=== PATIENT | female | born 1975 | race Caucasian/White ===

== ENCOUNTER 2020-05-03 16:16 | Emergency (ER) | payer MEDICARE, MEDICAID, SELFPAY ==
[2020-05-03] VITALS (7 sets, daily range): BP systolic 128–186; BP diastolic 72–113; PULSE 59–72; RESP 17–22; TEMP 36.2; O2SAT 95–100; BMI 54.7
[2020-05-03] MEDS: SODIUM CHLORIDE 0.9% 1,000 ML 1000 ML IV (18:11)
[2020-05-03] MEDS: diphenhydrAMINE 50 MG/ML VIAL 25 MG IV (18:11)
[2020-05-03] MEDS: METOCLOPRAMIDE 10 MG/2 ML INJ IV (18:12)
[2020-05-03] MEDS: KETOROLAC 60 MG/2 ML VIAL 15 MG IV (18:12)
--- NOTE | 2020-05-03 18:31 | ED_ITS ---
H[facility] - [facility]ache <[facility] - Last Filed: 05/03/20 19:52> General Chief Complaint: Headache Stated Complaint: migraine Time Seen by Provider: 05/03/20 17:37 Mode of arrival: Family Vehicle Limitations: no limitations History of Present Illness HPI Narrative: This is a 44 year female, former smoker, who has a long past medical history of migraine headache, depression, fibromyalgia, osteoarthritis, spinal stenosis presents to ED with chief complain of 3 day duration of migraine headache in the front and posterior head describing as tightness with photo and noise sensitivity with nausea. Patient has chills but no fever. She denies recent illness, URI symptoms or cough. Patient denies unusual rashes or nuchal rigidity. Patient had taken Toradol and Nurtec as home therapy without much improvement. Patient reports she usually gets aura did not have it with this migraine and reports also has been having twitching on his left eye for past week. Related Data Allergies Allergy/AdvReac Type Severity Reaction Status Date / Time divalproex sodium Allergy Unknown Verified 05/03/20 16:47 [From DEPAKOTE] morphine [MORPHINE] Allergy Unknown Verified 05/03/20 16:47 quetiapine [From SEROQUEL] Allergy Unknown Verified 05/03/20 16:47 sumatriptan [From IMITREX] Allergy Unknown Verified 05/03/20 16:47 topiramate [From TOPAMAX] Allergy Unknown Verified 05/03/20 16:47 Review of Systems <[facility] - Last Filed: 05/03/20 19:52> Review of Systems Narrative: General: Denies fever, chills, fatigue, malaise, sweats. HEENT: Denies sinus pain, ear pain, sore throat, difficulty swallowing, d izziness. Respiratory: Denies dyspnea, cough, wheezing, hemoptysis, sputum. Cardiovascular: Denies chest pain, palpitations, orthopnea, edema. Gastrointestinal: Denies (+)) nausea, vomiting, abdominal pain, diarrhea, constipation, melena. : Denies dysuria, frequency, incontinence, hematuria, urinary retention. Musculoskeletal: Denies weakness, joint pain or bony pain. Skin: Denies rash, skin lesions, or other. Neurologic: See HPI Psychiatric: No concerning psychosocial issues. 12-point review of systems is negative except for those stated above. Patient History <FERNANDA Scott - Last Filed: 05/03/20 19:52> Medical History (Updated 05/03/20 @ 19:34 by FERNANDA Scott) Depression Fibromyalgia Migraine headache Osteoarthritis Spinal stenosis Surgical History (Updated 05/03/20 @ 18:42 by FERNANDA Scott) H/O oophorectomy History of cholecystectomy Social History (Updated 05/03/20 @ 18:43 by FERNANDA Scott) Smoking Status: Current every day smoker substance use type: marijuana Smoking Status: Current every day smoker tobacco type: cigarettes alcohol intake frequency: 0-2 drinks per day Substance Use Type: marijuana Exam <FERNANDA Scott - Last Filed: 05/03/20 19:52> Narrative Exam Narrative: GEN: Alert, oriented x 3, well appearing and nourished, and in no acute distress. Head: Normal cephalic, atraumatic. No scalp or temporal tenderness, palpable mass or rash. EYES: Pupils are equal, round, and reactive to light and accommodation. Extraocular muscles are intact bilaterally. There is no subconjunctival hemorrhage, exudate and sclera non-icteric. ENT: Hearing grossly intact. Nose without bleeding, purulent discharge or deviation. Mucous membrane sticky, no mucosal lesion. Throat without erythema, tonsillar hypertrophy or exudate. Uvula in midline, airway patent. Neck: Trachea in midline. No JVD, non-tender without lymphadenopathy. No masses or thyroid megaly. Supple, non-tender and no meningeal signs. CARDIAC: Normal regular rate and rhythm without murmurs, gallops, or rubs. No chest wall tenderness. No peripheral edema, cyanosis or pallor. Capillary refill is less than 2 seconds. RESPIRATORY: Lungs are clear to auscultate bilaterally. No cough, wheezes, rales, or rhonchi. No stridor, respiratory distress, increase work of breath ing, or accessary muscle used. ABD: Abdomen soft, nontender and non-distended. No guarding or rebound tenderness to palpate. Bowel sounds are normal in all 4 quadrants. There is no palpable masses or organomegaly. EXT: Full painless ROM of all extremities with no loss of sensation, strength, effusion or edema. SKIN: Warm, dry, normal color for patient. No erythema, lesions or rash over visible areas. BACK: Nontender without deformity or crepitance. No flank tenderness. NEUROLOGICAL: Alert and oriented to place, time and person. Sensation and motor function intact bilaterally. No facial droops, dysphasia. PSYCHIATRIC: Good judgement and reason, without hallucinations, abnormal affect or abnormal behaviors during the examination. Patient is not suicidal. Initial Vital Signs Initial Vital Signs: Vital Signs Temperature 97.1 F L 05/03/20 16:43 Pulse Rate 68 05/03/20 16:43 Respiratory Rate 22 05/03/20 16:43 Blood Pressure 186/113 H 05/03/20 16:43 Pulse Oximetry 100 05/03/20 16:43 <Valerie De Paz DO - Last Filed: 05/04/20 07:14> Initial Vital Signs Initial Vital Signs: Vital Signs Temperature 97.1 F L 05/03/20 16:43 Pulse Rate 68 05/03/20 16:43 Respiratory Rate 22 05/03/20 16:43 Blood Pressure 186/113 H 05/03/20 16:43 Pulse Oximetry 100 05/03/20 16:43 Scores <FERNANDA Scott - Last Filed: 05/03/20 19:52> GCS Samuel coma scale eye opening: Spontaneous Samuel coma scale verbal response: Orientated Samuel coma scale motor response: Obey commands [place] coma scale total score: 15 Course <[place] FERNANDA Key - Last Filed: 05/03/20 19:52> Orders Ordered: Discontinued Medications Diphenhydramine HCl (Diphenhydramine 50 Mg/Ml Vial) 25 mg IV NOW ONE Stop: 05/03/20 18:08 Last Admin: 05/03/20 18:11 Dose: 25 mg Documented by: CARMENZA Sodium Chloride (Normal Saline 0.9%) 1,000 mls @ 1,000 mls/hr IV BOLUS ONE Stop: 05/03/20 19:06 Last Infusion: 05/03/20 19:41 Dose: 0 mls/hr Documented by: Admin: 05/03/20 18:11 Dose: 1,000 mls/hr Documented by: CARMENZA Ketorolac Tromethamine (Ketorolac 60 Mg/2 Ml Vial) 15 mg IV NOW ONE Stop: 05/03/20 18:08 Last Admin: 05/03/20 18:12 Dose: 15 mg Documented by: CARMENZA Metoclopramide HCl (Metoclopramide 10 Mg/2 Ml Inj) 10 mg IV NOW ONE Stop: 05/03/20 18:08 Last Admin: 05/03/20 18:12 Dose: 10 mg Documented by: CARMENZA Vital Signs Vital signs: Vital Signs - 8 hr 05/03/20 16:43 05/03/20 17:42 05/03/20 18:19 Temperature 97.1 F L Pulse Rate 68 71 72 Respiratory Rate 22 Blood Pressure 186/113 H 151/72 H Pulse Oximetry 100 97 98 05/03/20 18:20 05/03/20 18:30 05/03/20 19:00 Temperature Pulse Rate 68 66 59 L Respiratory Rate Blood Pressure 182/97 H 153/96 H 167/96 H Pulse Oximetry 97 96 95 05/03/20 19:30 Temperature Pulse Rate 66 Respiratory Rate 17 Blood Pressure 128/72 Pulse Oximetry 96 <Valerie D ePaz, - Last Filed: 05/04/20 07:14> Orders Ordered: Discontinued Medications Diphenhydramine HCl (Diphenhydramine 50 Mg/Ml Vial) 25 mg IV NOW ONE Stop: 05/03/20 18:08 Last Admin: 05/03/20 18:11 Dose: 25 mg Documented by: CARMENZA Sodium Chloride (Normal Saline 0.9%) 1,000 mls @ 1,000 mls/hr IV BOLUS ONE Stop: 05/03/20 19:06 Last Infusion: 05/03/20 19:41 Dose: 0 mls/hr Documented by: Admin: 05/03/20 18:11 Dose: 1,000 mls/hr Documented by: CARMENZA Ketorolac Tromethamine (Ketorolac 60 Mg/2 Ml Vial) 15 mg IV NOW ONE Stop: 05/03/20 18:08 Last Admin: 05/03/20 18:12 Dose: 15 mg Documented by: CARMENZA Metoclopramide HCl (Metoclopramide 10 Mg/2 Ml Inj) 10 mg IV NOW ONE Stop: 05/03/20 18:08 Last Admin: 05/03/20 18:12 Dose: 10 mg Documented by: CARMENZA Vital Signs Vital signs: Vital Signs - 8 hr 05/03/20 16:43 05/03/20 17:42 05/03/20 18:19 Temperature 97.1 F L Pulse Rate 68 71 72 Respiratory Rate 22 Blood Pressure 186/113 H 151/72 H Pulse Oximetry 100 97 98 05/03/20 18:20 05/03/20 18:30 05/03/20 19:00 Temperature Pulse Rate 68 66 59 L Respiratory Rate Blood Pressure 182/97 H 153/96 H 167/96 H Pulse Oximetry 97 96 95 05/03/20 19:30 Temperature Pulse Rate 66 Respiratory Rate 17 Blood Pressure 128/72 Pulse Oximetry 96 MDM - Headache <FERNANDA Scott - Last Filed: 05/03/20 19:52> Differential Diagnosis Differential diagnosis: Likely migraine and tension headache Medical Records Attestation: I reviewed the patient's medical records. MDM Narrative Medical decision making narrative: This is a 44 year female who presents to ED with 3 day duration of tight headache in frontal and posterior head with mild nausea, photophobia and also sensitivity to noises. Patient has known long history of migraine headache and her routine migraine medication Nurtec and Toradol have been not effective. Physical exam is unremarkable. No unusual rashes, nuchal rigidity, altered mental status. Vital signs within normal limits and afebrile. Patient requested initially steroid medication with IV fluid but informed will start with IV fluid, Benadryl and Reglan for her symptoms and if these patient and will consider steroid which patient did not require at this time. Patient reports improved after this medication. Patient advised to follow-up with primary care physician next week and we discussed return precautions which she verbalized understanding and agreement with treatment plan. Discharge Plan Departure Patient Disposition: Home Clinical Impression: Headache Qualifiers: Headache type: unspecified Headache chronicity pattern: acute headache Intractability: not intractable Qualified Code(s): R51.9 - Headache, unspecified Instructions: DI for Headache Activity Restrictions/Additional Instructions: You have been diagnosed with [headache which responded well with IV fluids, and IV headache medications.]. What to do: *Take your medications as directed. Please continue with your headache medication regimen. *Follow up with your primary care provider in 2-3 days, call for an appointment. Let them know you were seen in the ED and that we asked you to be seen in follow up. *Return to ED if you have any new, worsening, or concerning symptoms, such as [worsening headache, neck tightness, fever, unusual rashes, chest pain, breathing difficulty, unable to tolerate fluids or any acute concerns]. Referrals: David Jim MD [Primary Care Provider] - <Valerie De Paz DO - Last Filed: 05/04/20 07:14> Cosign ED Attending Cosignature Attestation: I was immediately available in the department for consultation. Documentation has been reviewed.
== END 2020-05-03 19:45 | disposition home or self-care (01) ==
PROVIDERS: Emergency Provider Nurse Practitioner Family; PCP Family Medicine
DX: R51.9 Headache, unspecified (principal)
CPT/HCPCS: 96361; 96374; 96375; 99281; 99284; J1200; J1885; J2765